=== PATIENT | male | born 1955 ===

== ENCOUNTER 2021-04-24 16:17 | Outpatient (REF) | payer BC, SELFPAY ==
[2021-04-24 16:50] LABS: Mean Corpuscular Hemoglobin 29.6 pg (27.0-33.0); Mean Platelet Volume 11.6 fL (9.4-12.4); PLT CLUMP 1; Red Cell Distribution Width 14.1 % (11.0-16.0); SCAN SMEAR FLAG 1
[2021-04-24 16:51] LABS: Basophils Percent Auto 0.5 % (0-2); Eosinophils Absolute Auto 0.1 X10*3/uL (0.0-0.4); Eosinophils Percent Auto 1.6 % (0-4); Hematocrit 45.6 % (42-52); Hemoglobin 15.1 g/dl (14.0-18.0); Imm Gran Abs Auto 0.01 X10*3/uL (0.00-0.03); Imm Gran Pct Auto 0.2 % (0.0-0.4); Lymphocytes Percent Auto 31.7 % (20-40); Mean Corpuscular HGB Conc 33.1 g/dl (31.0-36.0); Mean Corpuscular Volume 89.4 fL (80-98); Monocytes Absolute Auto 0.8 X10*3/uL (0.1-1.2); Monocytes Percent Auto 13.4 % (2-11); Neutrophils Absolute Auto 3.3 X10*3/uL (2.0-8.3); Neutrophils Percent Auto 52.6 % (45-73); Platelet Count 135 X10*3/uL (160-400); White Blood Count 6.3 X10*3/uL (4.8-10.8)
[2021-04-24 16:53] LABS: MANUAL DIFF FLAG NO
[2021-04-24 17:10] LABS: Alanine Aminotransferase 28 U/L (0-40); Albumin Level 4.4 g/dL (3.5-5.0); Alkaline Phosphatase 73 U/L (39-117); Anion Gap 11 (12-20); Aspartate Amino Transferase 29 U/L (5-37); Bilirubin Total 0.5 mg/dL (0.0-1.0); Blood Urea Nitrogen 32 mg/dL (9-16); Calcium 9.6 mg/dL (8.4-10.2); Carbon Dioxide 28 mmol/L (22-29); Chloride 106 mmol/L (96-108); Cholesterol 189 mg/dL; Estimated Glomerular Filt Rate > 60; Glucose Random 99 mg/dL (60-115); HDL Cholesterol 69 mg/dL; LDL Cholesterol Calculated 103 mg/dl; Potassium 4.4 mmol/L (3.3-5.1); Sodium 141 mmol/L (135-145); Total Protein 6.8 g/dL (6.5-8.0); Triglycerides 88 mg/dL
[2021-04-24 17:33] LABS: Free T4 (Free Thyroxine) 0.84 ng/dL (0.71-1.85); Prostate Specific Antigen Scr 2.73 ng/mL (<0.05-4.0); Thyroid Stimulating Hormone 2.02 uIU/mL (0.32-4.0)
[2021-04-24 17:42] LABS: Folate 10.1 ng/mL (> or = 4.0); Vitamin B12 393 pg/mL (200-900)
== END 2021-04-24 16:18 | disposition home or self-care (01) ==
LOC: HO.LAB 16:17
PROVIDERS: PCP Internal Medicine; Visit Provider Internal Medicine
DX: F32.9 Major depressive disorder, single episode, unspecified (principal); F41.9 Anxiety disorder, unspecified; E78.00 Pure hypercholesterolemia, unspecified
CPT/HCPCS: 36415; 80053; 80061; 82607; 82746; 84153; 84439; 84443; 85025

== ENCOUNTER → 2021-06-04 08:11 | Outpatient (REF) | payer BC, SELFPAY ==
--- NOTE | 2021-06-04 09:06 | ECG_ITS ---
Test Reason : FATIGUE Blood Pressure : / mmHG Vent. Rate : 059 BPM Atrial Rate : 059 BPM P-R Int : 176 ms QRS Dur : 112 ms QT Int : 438 ms P-R-T Axes : 058 025 052 degrees QTc Int : 433 ms Sinus bradycardia Otherwise normal ECG No previous ECGs available Referred By: Joe Osborn Electronically Signed By:RYAN BEAR MD
== END ==
LOC: HO.CARD 08:11
PROVIDERS: Absent Provider Internal Medicine; PCP Internal Medicine; Referring Provider Internal Medicine; Visit Provider Nurse Practitioner Family
DX: Z01.818 Encounter for other preprocedural examination (principal); R53.83 Other fatigue
CPT/HCPCS: 93005

== ENCOUNTER 2021-09-05 07:40 | Day surgery (SDC) | payer BC, SELFPAY ==
[2021-08-29 11:00] VITALS: BMI 29.4
--- NOTE | 2021-09-04 10:10 | P.CONAN_ITS ---
Documented by User: Olga Celis NP 09/04/21 10:15 HPI - Anesthesia Eval Consult details Narrative: 66yo M for Colonoscopy PMFSH Active Problems Active Problems: All Active Problems (Updated 08/29/21 @ 10:59 by Gracy Burton RN) Annual physical exam (Acute) Colon cancer screening (Acute) Tiredness (Acute) ADHD (Acute) Anxiety and depression (Acute) Hypercholesterolemia (Acute) Past Medical History Medical History ADHD Anxiety and depression COVID-19 vaccine series completed Erectile dysfunction Esophageal erosions Hypercholesterolemia Thrombocytopenia Family History Family History Mother Renal cancer Brother Substance abuse Surgical History Surgical History (Updated 08/29/21 @ 10:59 by Gracy Burton RN) H/O arthroscopy of right knee H/O colonoscopy History of esophagogastroduodenoscopy (EGD) History of shoulder surgery Hx of tonsillectomy Social History Social History Housing: House Alcohol intake: never Patient Tobacco Use Status: Former Tobacco user Tobacco use type: Cigarette e-Cigarette/Vaping Use: Never Used Second Hand Smoke Exposure: No Advance Directives Information Provided: Yes (informational brochure mailed) Advance Directives on File: No service: No Current occupational status: employed Current occupational exposures/hazards: No Meds Allergies Allergy/AdvReac Type Severity Reaction Status Date / Time ketoprofen [Ketoprofen] Allergy Mild RASH Verified 06/04/21 08:16 Home Medications Medication Instructions Recorded Confirmed Last Taken Type bupropion HCl 300 mg 24 hr tablet, 300 mg PO BEDTIME 04/09/21 08/29/21 Unknown History extended release dextroamphetamine-amphetamine ER 1 cap PO QAM 04/09/21 08/29/21 Unknown History 25 mg 24hr capsule,extend release escitalopram oxalate 10 mg tablet 10 mg PO DAILY 04/09/21 08/29/21 Unknown History Exam Exam Date and Time: September 04, 2021 1010 Height,Weight and Vital Signs: Height 6 ft 1 in Weight 101.151 kg Pertinent Lab Results Pertinent Lab Results: Laboratory Tests 04/24/21 04/24/21 16:30 16:30 WBC 6.3 Hgb 15.1 Hct 45.6 Plt Count 135 L Sodium 141 Potassium 4.4 Chloride 106 Carbon Dioxide 28 BUN 32 H Creatinine 1.01 Narrative Narrative: EKG 05/2021 Vent. Rate : 059 BPM ? ? Atrial Rate : 059 BPM ?? P-R Int : 176 ms? QRS Dur : 112 ms ? ? QT Int : 438 ms ? ? ? P-R-T Axes : 058 025 052 degrees ?? QTc Int : 433 ms ? Sinus bradycardia Otherwise normal ECG No previous ECGs available Assessment and Plan Assessment Anesthesia Assessment: Chart Reviewed Documented by User: Carito Johnson MD 09/05/21 08:22 [facility] Past Medical History Medical History ADHD Anxiety and depression COVID-19 vaccine series completed Erectile dysfunction Esophageal erosions Hypercholesterolemia Thrombocytopenia Functional capacity: independent ambulation Family History Family History Mother Renal cancer Brother Substance abuse Family history of problems with anesthesia: No Surgical History Surgical History (Updated 08/29/21 @ 10:59 by Gracy Burton RN) H/O arthroscopy of right knee H/O colonoscopy History of esophagogastroduodenoscopy (EGD) History of shoulder surgery Hx of tonsillectomy History of Problems with Anesthesia: No Social History Social History Housing: House Alcohol intake: never Patient Tobacco Use Status: Former Tobacco user Tobacco use type: Cigarette e-Cigarette/Vaping Use: Never Used Second Hand Smoke Exposure: No Advance Directives Information Provided: Yes (informational brochure mailed) Advance Directives on File: No service: No Current occupational status: employed Current occupational exposures/hazards: No Meds Allergies Allergy/AdvReac Type Severity Reaction Status Date / Time ketoprofen [Ketoprofen] Allergy Mild RASH Verified 06/04/21 08:16 Home Medications Medication Instructions Recorded Confirmed Last Taken Type bupropion HCl 300 mg 24 hr tablet, 300 mg PO BEDTIME 04/09/21 08/29/21 Unknown History extended release dextroamphetamine-amphetamine ER 1 cap PO QAM 04/09/21 08/29/21 Unknown History 25 mg 24hr capsule,extend release escitalopram oxalate 10 mg tablet 10 mg PO DAILY 04/09/21 08/29/21 Unknown History Exam Airway Mallampati Class: II TM Dist: >3cm Neck ROM: Full Heart: RRR Lungs: CTA Assessment and Plan Final Anesthetic Review Family History of Problems with Anesthesia: No History of Problems with Anesthesia: No Final Preanesthetic Review: No Changes in Pt Med Stat Patient Risk: Low Procedure Risk: Low Anesthetic Plan Anesthetic Plan: MAC: Disposition: Standard PACU
[2021-09-05 07:48] VITALS: BP 121/80; PULSE 56; RESP 16; TEMP 36.8; O2SAT 96
[2021-09-05] MEDS: Lactated Ringers 1,000 ML 100 ML IVCONT (08:03)
--- NOTE | 2021-09-05 08:30 | MHC.SHP ---
Pre-Procedural Eval Section A Date of Service: 09/05/21 Section B Chief Complaint: Screening Relevant Family History (Specify if Yes): No Relevant Social History: None Present Medications: see Short Stay Collaborative assessment Medical History: Significant History (adhd, depression, high chol) History of Previous Operations: Relevant previous surgery/procedure and date(s) (H/O arthroscopy of right knee H/O colonoscopy History of esophagogastroduodenoscopy (EGD) History of shoulder surgery Hx of tonsillectomy) Allergies: Allergies Allergy/AdvReac Type Severity Reaction Status Date / Time ketoprofen [Ketoprofen] Allergy Mild RASH Verified 06/04/21 08:16 Review of Systems Sugical H&P ROS: Negative: Constitution, Cardiovascular, Respiratory, Neurological, Psychiatric, Hem-Onc, Allergic/Immunologic, Gastrointestinal, Genitourinary, Musculoskeletal, Integumentary, Endocrine and Eyes/Ears/Nose/Throat Exam Surgical H&P Exam: Normal: HEENT, Normal: Heart, Normal: Lungs, Normal: Extremities, Normal: Abdomen, Normal: Skin and Normal: Neurological Plan Diagnosis/Plan: Unchanged I have reviewed the history and physical and performed a pertinent physical examination on my patient. No changes have occurred unless specified.
--- NOTE | 2021-09-05 09:03 | PM.OP ---
Brief Operative Note Date of Service: 09/05/21 Pre-op diagnosis: screening Post-op diagnosis: same Procedure: see op note Surgeon: Oscar Espinoza MD Anesthesia: MAC Was an Respiratory Therapy Aide used for this Procedure?: No Estimated blood loss (mL): 5 Condition: stable Disposition: PACU
--- NOTE | 2021-09-05 09:04 | P.OP_ITS ---
Operative Note Operative Note Date of Service: 09/05/21 Narrative: Operative Information Procedure Description: Colonoscopy COLONOSCOPY Instrument: Olympus variable stiffness pediatric scope 190L Colonoscopy Monitoring: Vital signs and clinical assessment, continuous EKG monitoring, Pulse oximetry, Carbon Dioxide monitoring and blood pressure monitoring were done throughout the procedure. Colon withdrawal time was 17 minutes. Procedure: The patient was placed in the left lateral decubitis position and pre-procedure medications were administered. After a digital rectal examination of the ano-rectum, the video colonoscope was inserted into the rectum and advanced through the colon to the cecum/TI. The colonoscope was slowly withdrawn in a retrograde panoramic fashion and the colon mucosa was carefully examined including a retroflexed view of the rectum. Findings and interventions are described below. Procedure Difficulty: easy Findings: Terminal Ileum-normal Cecum: 10 mm sessile polyp removed with cold snare Ascending Colon: normal Transverse Colon -normal Descending Colon:normal Sigmoid Colon: scattered medium sized diverticula Rectum: Retroflexion with medium sized internal hemorrhoids, grade I, In proximal rectum there was a 10-12 mm sessile polyp with surrounding edema, inflammed surface, removed with codl snare and then 2 clips applied for hemostasis. Anorectum - normal Colon preparation: [place] Bowel Preparation Scale Right colon; 2 Transverse colon: 2 Left colon; 2 (0 = Unprepared colon segment with mucosa not seen due to solid stool that cannot be cleared. 1 = Portion of mucosa of the colon segment seen, but other areas of the colon segment not well seen due to staining, residual stool and/or opaque liquid. 2 = Minor amount of residual staining, small fragments of stool and/or opaque liquid, but mucosa of colon segment seen well. 3 = Entire mucosa of colon segment seen well with no residual staining, small fragments of stool or opaque liquid) Impression and Post Procedure Diagnosis: polyps internal hemorrhoids diverticular disease Plan: High fiber diet leaflet Avoid straining at stool, epsom salts and sitz bath, anusol supps or cream Repeat Colonoscopy in 5 years due to polyps or earlier if clinically indicated Above findings were reviewed with the patient and relevant handouts were provided if indicated.
[2021-09-05 09:10] VITALS: BP 86/47; PULSE 48; RESP 16; TEMP 36.4; O2SAT 96
[2021-09-05 09:15] VITALS: BP 103/60; PULSE 47; RESP 16; O2SAT 94
[2021-09-05 09:20] VITALS: BP 108/63; PULSE 48; RESP 16; O2SAT 98
[2021-09-05 09:25] VITALS: BP 100/56; PULSE 52; RESP 16; TEMP 36.2; O2SAT 95
--- NOTE | 2021-09-05 11:16 | HO.POSTANES ---
Post Anesthesia Evaluation Post Anesthesia Evaluation Vital Signs: Vital Signs Temp Pulse Resp BP Pulse Ox 09/05/21 09:25 97.1 F 52 16 100/56 L 95 09/05/21 09:20 48 L 16 108/63 98 09/05/21 09:15 47 L 16 103/60 94 09/05/21 09:10 97.5 F 48 L 16 86/47 L 96 09/05/21 07:48 98.2 F 56 16 121/80 96 Anesthesia: Monitored Mental Status: Awake Pain Control: Satisfactory Nausea/Vomiting: None Hydration: Adequate Anesthesia-Related Issues: No Anes. Related Issues
== END 2021-09-05 10:11 | disposition home or self-care (01) ==
PROVIDERS: PCP Internal Medicine; Visit Provider Internal Medicine Gastroenterology
PROC: 0DJD8ZZ Inspection of Lower Intestinal Tract, Via Natural or Artificial Opening Endoscopic (ICD-10-PCS; CPT 45378; principal; 2021-09-05 08:30)
DX: Z12.11 Encounter for screening for malignant neoplasm of colon (principal); D12.0 Benign neoplasm of cecum; D12.8 Benign neoplasm of rectum; K57.30 Diverticulosis of large intestine without perforation or abscess without bleeding; K64.0 First degree hemorrhoids; K22.10 Ulcer of esophagus without bleeding; F32.9 Major depressive disorder, single episode, unspecified; D69.6 Thrombocytopenia, unspecified; N52.9 Male erectile dysfunction, unspecified; F90.9 Attention-deficit hyperactivity disorder, unspecified type; E78.00 Pure hypercholesterolemia, unspecified; Z88.8 Allergy status to other drugs, medicaments and biological substances
CPT/HCPCS: 45385; 88305

== ENCOUNTER → 2021-09-24 10:34 | Outpatient (BNVA) | payer BC, SELFPAY | PROVIDERS: PCP Internal Medicine; Referring Provider Internal Medicine; Visit Provider Nurse Practitioner Family ==

== ENCOUNTER 2023-03-26 08:19 | Outpatient (REF) | payer OTHER, SELFPAY ==
[2023-03-26 08:39] LABS: MANUAL DIFF FLAG NO
[2023-03-26 09:35] LABS: Basophils Percent Auto 0.7 % (0-2); Eosinophils Absolute Auto 0.1 X10*3/uL (0.0-0.4); Eosinophils Percent Auto 1.7 % (0-4); Hematocrit 46.3 % (42.0-52.0); Hemoglobin 15.3 g/dl (14.0-18.0); Imm Gran Abs Auto 0.01 X10*3/uL (0.00-0.03); Imm Gran Pct Auto 0.2 % (0.0-0.4); Lymphocytes Absolute Auto 1.7 X10*3/uL (1.2-4.9); Lymphocytes Percent Auto 30.8 % (20-40); Mean Corpuscular Volume 87.7 fL (80.0-98.0); Mean Platelet Volume 11.5 fL (9.4-12.4); Monocytes Absolute Auto 0.5 X10*3/uL (0.1-1.2); Monocytes Percent Auto 9.8 % (2-11); Neutrophils Absolute Auto 3.1 x10*3/uL (2.0-8.3); Neutrophils Percent Auto 56.8 % (45-73); Platelet Count 132 X10*3/uL (160-400); Red Blood Count 5.28 X10*6/uL (4.60-5.80); Red Cell Distribution Width 13.7 % (11.0-16.0); White Blood Count 5.4 X10*3/uL (4.8-10.8)
[2023-03-26 10:38] LABS: Alanine Aminotransferase 31 U/L (0-40); Albumin Level 4.3 g/dL (3.5-5.0); Alkaline Phosphatase 80 U/L (39-117); Anion Gap 12 (12-20); Aspartate Amino Transferase 29 U/L (5-37); Bilirubin Total 0.7 mg/dL (0.0-1.0); Blood Urea Nitrogen 16 mg/dL (9-16); Calcium 9.7 mg/dL (8.4-10.2); Carbon Dioxide 29 mmol/L (22-29); Chloride 105 mmol/L (96-108); Cholesterol 192 mg/dL; Estimated Glomerular Filt Rate > 60; Glucose Fasting 93 mg/dL (60-99); HDL Cholesterol 67 mg/dL; LDL Cholesterol Calculated 108 mg/dl; Potassium 4.6 mmol/L (3.3-5.1); Sodium 141 mmol/L (135-145); Total Protein 6.8 g/dL (6.5-8.0); Triglycerides 86 mg/dL
[2023-03-26 10:59] LABS: Prostate Specific Antigen 3.76 ng/mL (<0.05-4.0); Vitamin D 25-OH Total 19.4 ng/mL (>30)
== END 2023-03-26 08:20 | disposition home or self-care (01) ==
LOC: HO.LAB 08:19
PROVIDERS: PCP Internal Medicine; Visit Provider Internal Medicine
DX: Z00.00 Encounter for general adult medical examination without abnormal findings (principal); Z12.5 Encounter for screening for malignant neoplasm of prostate; E55.9 Vitamin D deficiency, unspecified; N40.0 Benign prostatic hyperplasia without lower urinary tract symptoms; E78.5 Hyperlipidemia, unspecified; R94.6 Abnormal results of thyroid function studies
CPT/HCPCS: 36415; 80053; 80061; 82306; 84153; 84439; 84443; 85025

== ENCOUNTER 2023-07-23 13:21 | Outpatient (REF) | payer OTHER, SELFPAY ==
[2023-07-23 15:45] LABS: Free T4 (Free Thyroxine) 0.81 ng/dL (0.71-1.85); Prostate Specific Antigen Scr 3.68 ng/mL (<0.05-4.0); Thyroid Stimulating Hormone 6.22 uIU/mL (0.32-4.0)
== END 2023-07-23 13:22 | disposition home or self-care (01) ==
LOC: HO.LAB 13:21
PROVIDERS: PCP Internal Medicine; Visit Provider Internal Medicine
DX: Z12.5 Encounter for screening for malignant neoplasm of prostate (principal); R79.89 Other specified abnormal findings of blood chemistry; E78.00 Pure hypercholesterolemia, unspecified
CPT/HCPCS: 36415; 84153; 84439; 84443

== ENCOUNTER 2024-02-09 14:06 | Outpatient (REF) | payer OTHER, SELFPAY ==
[2024-02-09 15:52] LABS: Free T4 (Free Thyroxine) 0.89 ng/dL (0.71-1.85); Thyroid Stimulating Hormone 6.47 uIU/mL (0.32-4.0)
== END 2024-02-09 14:07 | disposition home or self-care (01) ==
LOC: HO.LAB 14:06
PROVIDERS: PCP Internal Medicine; Visit Provider Internal Medicine
DX: R94.6 Abnormal results of thyroid function studies (principal)
CPT/HCPCS: 36415; 84439; 84443

== ENCOUNTER 2024-04-26 12:19 | Outpatient (AMB) | payer OTHER, SELFPAY ==
[2024-04-26 12:24] VITALS: BP 104/62; PULSE 49; O2SAT 95; BMI 29.0
--- NOTE | 2024-04-26 12:24 | A.OFFPC_ITS ---
Vital Signs 04/26/24 12:24 Height 6 ft 1 in Weight 220 lb BMI 29.0 BP 104/62 Blood Pressure Location Lt brachial Position Sitting Pulse 49 L Pulse Source Pulse Oximeter Pulse Oximetry (%) 95 Oxygen Delivery Method Room Air Intake Visit Reasons: Annual Exam Allergies ketoprofen [Ketoprofen] Allergy (Mild, Verified 04/26/24 12:25) RASH Medication List - Last Reconciled 04/26/24 by Joe Osborn MD bupropion HCl XL 300 mg PO BEDTIME dextroamphetamine-amphetamine 25 mg ER 1 cap PO QAM escitalopram oxalate 10 mg PO DAILY Tobacco use date assessed: 04/26/24 Fall risk assessment: No Falls in past year Last assessed Fall Risk: 04/26/24 Dental Screening Dental Screen Date: 04/26/24 Did you have a dental visit in the last 12 months?: Yes Did you have a dental problem in the last 6 months where you did not have access to dental care?: No Was dental information given to patient?: Patient has dentist HPI Annual Exam HPI Details 68-year-old overweight male with anxiety and depression ADHD coming in for physical exam last seen in 04/15/2023 patient's colonoscopy is up-to-date 09/15/2021 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 complains of having RUQ pain and intermittently PFSH Medical History (Updated 04/26/24 @ 13:23 by Joe Osborn MD) Diverticulosis Tubular adenoma COVID-19 vaccine series completed Colon cancer screening Esophageal erosions Erectile dysfunction ADHD Anxiety and depression Hypercholesterolemia Thrombocytopenia Surgical History History of esophagogastroduodenoscopy (EGD) H/O colonoscopy Hx of tonsillectomy H/O arthroscopy of right knee History of shoulder surgery Family History (Updated 04/21/23 @ 12:32 by Caitlin Moore CMA) Mother Renal cancer Brother Substance abuse Social History Housing: House Alcohol intake: never Patient Tobacco Use Status: Former Tobacco user Tobacco use type: Cigarette e-Cigarette/Vaping Use: Never Used Second Hand Smoke Exposure: No service: No Current occupational status: employed Current occupational exposures/hazards: No Cognitive needs: No Hearing needs: No Vision needs: Yes (wears glasses) Questionnaire PHQ-9 Over the last 2 weeks, how often have you been bothered by any of the following problems? 1. Little interest or pleasure in doing things: not at all 2. Feeling down, depressed, or hopeless: not at all 3. Trouble falling or staying asleep, or sleeping too much: not at all 4. Feeling tired or having little energy: not at all 5. Poor appetite or overeating: not at all 6. Feeling bad about yourself - or that you are a failure or have let yourself or your family down: not at all 7. Trouble concentrating on things, such as reading the newspaper or watching television: not at all 8. Moving or speaking so slowly that other people could have noticed. Or the opposite - being so fidgety or restless that you have been moving around a lot more than usual: not at all 9. Thoughts that you would be better off or of hurting yourself in some way: not at all Total score: 0 Depression Screening Interpretation: Negative (on Rx) Depression Screening Done: Yes Source: Developed by Drs. Faisal Gonzalez, Leann Erickson, Js Garcia and colleagues, with an educational brooklynn from [employer]. Thrive Questionnaire Date Thrive assessed: 04/26/24 I am a: Patient What is your living situation today?: I have a steady place to live Within the past 12 months, did the food you bought not last and you didn't have the money to get more?: Never true Within the past 12 months, did you worry whether your food would run out before you got money to buy more?: Never true Do you have trouble paying for medicines?: No Do you have trouble getting transportation to medical appointments?: No Do you have trouble paying your heating and electricity bill?: No Do you have trouble taking care of your child, family member or friend?: No Do you have trouble with day-to-day activities such as bathing, preparing meals, shopping, managing finances, etc.?: No Are you currently unemployed and looking for a job?: No Are you interested in more education?: No Currently or been in a relationship where the following occur: No concerns reported THRIVE Score: 0 AUDIT C Alcohol Use Questionnaire (AUDIT-C) 1. How often do you have a drink containing alcohol?: Never 3. How often do you have six or more drinks on one occasion?: Never Total Score: 0 Score Reviewed/Action Taken: Yes THANIA-7 AMB Questionnaire THANIA-7 Date THANIA - 7 assessed: 04/26/24 Feeling nervous, anxious, or on edge: 0 = Not at all Not being able to stop or control worryin = Not at all Worrying too much about different things: 0 = Not at all Trouble relaxin = Not at all Being so restless that it is hard to sit still: 0 = Not at all Becoming easily annoyed or irritable: 0 = Not at all Feeling afraid as if something awful might happen: 0 = Not at all Total THANIA-7 score (0-4 normal; 5-9 mild; 10-14 moderate; 15-21 severe): 0 Source: Developed by Drs. Faisal Gonzalez, Leann Erickson, Js Garcia and colleagues, with an educational brooklynn from [employer]. Review of Systems Const Denies poor appetite and Denies weakness Eyes Denies no additional complaints ENT Reports Normal hearing present, Denies dizziness, Denies nasal congestion, Denies tinnitus and Denies sore throat Card Denies chest pain, Denies syncope, Denies rapid heart rate and Denies dyspnea Resp Denies cough and Denies dyspnea GI Denies change in stool character, Reports constipation, Denies diarrhea, Denies nausea and Denies vomiting Denies dysuria and Denies urinary frequency Neuro Reports Normal hearing present, Denies confusion, Denies dizziness, Denies syncope and Denies weakness Psych Denies confusion Physical exam (Primary Care) Vital Signs: Last Vital Signs Pulse 49 L 04/26/24 12:24 BP 104/62 04/26/24 12:24 Pulse Ox 95 04/26/24 12:24 Oxygen Delivery Method Room Air 04/26/24 12:24 BMI result Body Mass Index 29.0 Tobacco/Smoking Status: Tobacco use Status Tobacco use date assessed 04/26/24 04/26/24 12:26 Patient Tobacco Use Status Former Tobacco user 04/26/24 12:26 Tobacco use type Cigarette 04/26/24 12:26 e-Cigarette/Vaping Use Never Used 04/26/24 12:26 PHQ-9: PHQ-9 Score PHQ-9: Total score 0 04/26/24 12:59 Depression Screening Interpretation: Negative (on Rx) Thrive Assessment: Date of Thrive Assessment Date Thrive assessed 04/26/24 04/26/24 12:26 Currently or been in a relationship where the following occur: No concerns reported Const General: No confusion Orientation/consciousness: No confusion HENMT Head: Yes normocephalic Ears: external ears normal and TM's normal bilaterally Face and sinus: Yes normal facial exam Mouth: moist mucous membranes Throat: Yes tonsils normal Eyes Conjunctivae: conjunctivae normal Pupils: Equal, round and reactive pupils present and Pupil accommodation reflex normal Direct Ophthalmoscopy: normal light reflex Neck Neck: No lymphadenopathy Thyroid: Thyroid normal Chest Chest palpation & inspection: normal inspection of the chest Resp Effort & Inspection: normal respiratory effort and no audible wheezes Auscultation: clear to auscultation bilaterally, no crackles, no wheezes and lung sounds not diminished Cardio Rate: regular rate Rhythm: regular rhythm Peripheral pulses: radial pulses present and dorsalis pedis present GI Other: guaiac negative and prostate N Palpation (GI): no masses Auscultation: normal bowel sounds and normoactive bowel sounds Male General Exam: Yes normal external exam Skin General skin exam: no rashes or lesions noted Rashes: no rashes Neuro General: No confusion Cranial nerves: Yes Equal, round and reactive pupils present and Yes Normal hearing present Cognition (Neuro): normal cognition Gait exam (Neuro): Normal gait present Motor exam (neuro): 5/5 motor strength present throughout Deep tendon reflexes (DTR's): Right brachioradialis reflex intensity grade: 2+, Left brachioradialis reflex intensity grade: 2+, Right patellar reflex intensity grade: 2+ and Left patellar reflex intensity grade: 2+ Extrem General: No edema Assessment and Plan Assessment & Plan (1) Annual physical exam: Code(s): Z00.00 - Encounter for general adult medical examination without abnormal findings Plan: Patient is advised to eat healthy, keep well hydrated, keep active and have adequate sleep. (2) Overweight (BMI 25.0-29.9): Code(s): E66.3 - Overweight Plan: Diet and exercise (3) TSH elevation: Code(s): R79.89 - Other specified abnormal findings of blood chemistry Plan: Continue to monitor TSH (4) Anxiety and depression: Comment: Bernadtete Tapankevinyukiradha Rohit Agustin Psych March 20202020 Code(s): F41.9 - Anxiety disorder, unspecified; F32.9 - Major depressive disorder, single episode, unspecified Plan: Continue with counseling and therapy (5) ADHD: Code(s): F90.9 - Attention-deficit hyperactivity disorder, unspecified type Qualifiers: Attention deficit-hyperactivity disorder type: combined inattentive- hyperactive Qualified Code(s): F90.2 - Attention-deficit hyperactivity disorder, combined type Plan: Continue with present medication (6) RUQ abdominal pain: Code(s): R10.11 - Right upper quadrant pain Orders: Orders US abdomen complete Today R10.11 - Right upper quadrant pain, R79.89 - Other specified abnormal findings of blood chemistry Coding Level of Care Code Est Pt Prev Care >65y(62063) Diagnoses Annual physical exam Z00.00 Overweight (BMI 25.0-29.9) E66.3 TSH elevation R79.89 Anxiety and depression F41.9; F32.9 Attention deficit hyperactivity disorder (ADHD), combined type F90.2 Attention deficit-hyperactivity disorder type: combined inattentive- hyperactive RUQ abdominal pain R10.11 Additional Codes PHQ-9 - 19551 - PHQ-9 Billing: ([id number])
== END 2024-04-26 13:32 | disposition home or self-care (01) ==
PROVIDERS: PCP Internal Medicine; Visit Provider Internal Medicine
DX: Z00.00 Encounter for general adult medical examination without abnormal findings (principal); E66.3 Overweight; R79.89 Other specified abnormal findings of blood chemistry; F41.9 Anxiety disorder, unspecified; F32.9 Major depressive disorder, single episode, unspecified; F90.2 Attention-deficit hyperactivity disorder, combined type; R10.11 Right upper quadrant pain
CPT/HCPCS: 99397

== ENCOUNTER 2024-06-21 08:39 | Outpatient (REF) | payer OTHER, SELFPAY ==
--- NOTE | ~2024-06-21 | US_ITS ---
EXAMINATION: US ABDOMEN COMPLETE CLINICAL INFORMATION: Other specified abnormal findings of blood chemistry. COMPARISON: None available. TECHNIQUE: Real-time imaging of the abdominal viscera. FINDINGS: PANCREAS: Normal. ABDOMINAL AORTA: The proximal, mid, and distal segments are normal in caliber. INFERIOR VENA CAVA: Visualized portions are normal. LIVER: Normal. The liver is normal in size. The liver contour is normal. Parenchymal echogenicity is normal. No focal hepatic lesion. There is no intrahepatic biliary duct dilatation seen. GALLBLADDER: Normal. The gallbladder is physiologically distended without evidence of stones, sludge, polyps, wall thickening or pericholecystic fluid. COMMON BILE DUCT: Normal in caliber measuring 0.4 cm in diameter. RIGHT KIDNEY: Normal. No hydronephrosis. No renal calculi or focal parenchymal lesions. The kidney measures 11.6 cm in maximum dimension. LEFT KIDNEY: Normal. No hydronephrosis. No renal calculi or focal parenchymal lesions. The kidney measures 11.6 cm in maximum dimension. SPLEEN: Normal. The spleen measures 11.1 cm in maximum dimension. FREE FLUID: None. US/US abdomen complete IMPRESSION: Unremarkable abdominal ultrasound. Electronically signed by: Crow Correia MD 06/26/2024 02:38 PM EDT
== END 2024-06-21 08:40 | disposition home or self-care (01) ==
LOC: HO.US 08:39
PROVIDERS: PCP Internal Medicine; Visit Provider Internal Medicine
DX: R10.11 Right upper quadrant pain (principal); R79.89 Other specified abnormal findings of blood chemistry
CPT/HCPCS: 76700

== ENCOUNTER 2024-12-22 10:20 | Outpatient (REF) | payer MEDICARE, OTHER, SELFPAY ==
[2024-12-22 10:39] LABS: MANUAL DIFF FLAG NO
[2024-12-22 10:44] LABS: Basophils Absolute Auto 0.1 X10*3/uL (0.0-0.2); Basophils Percent Auto 0.9 % (0-2); Eosinophils Absolute Auto 0.2 X10*3/uL (0.0-0.4); Eosinophils Percent Auto 2.2 % (0-4); Hematocrit 44.9 % (42.0-52.0); Hemoglobin 15.6 g/dl (14.0-18.0); Imm Gran Abs Auto 0.01 X10*3/uL (0.00-0.03); Imm Gran Pct Auto 0.1 % (0.0-0.4); Lymphocytes Absolute Auto 1.4 X10*3/uL (1.2-4.9); Lymphocytes Percent Auto 20.4 % (20-40); Mean Corpuscular HGB Conc 34.7 g/dl (31.0-36.0); Mean Corpuscular Hemoglobin 29.8 pg (27.0-33.0); Mean Corpuscular Volume 85.7 fL (80.0-98.0); Mean Platelet Volume 10.8 fL (9.4-12.4); Monocytes Absolute Auto 0.5 X10*3/uL (0.1-1.2); Monocytes Percent Auto 7.7 % (2-11); Neutrophils Absolute Auto 4.8 x10*3/uL (2.0-8.3); Neutrophils Percent Auto 68.7 % (45-73); Platelet Count 143 X10*3/uL (160-400); Red Blood Count 5.24 X10*6/uL (4.60-5.80); Red Cell Distribution Width 13.5 % (11.0-16.0); White Blood Count 6.9 X10*3/uL (4.8-10.8)
[2024-12-22 11:19] LABS: Alanine Aminotransferase 29 U/L (0-40); Albumin Level 4.1 g/dL (3.5-5.0); Alkaline Phosphatase 103 U/L (39-117); Anion Gap 12 (12-20); Aspartate Amino Transferase 28 U/L (5-37); Bilirubin Total 0.5 mg/dL (0.0-1.0); Blood Urea Nitrogen 20 mg/dL (9-16); Calcium 9.6 mg/dL (8.4-10.2); Carbon Dioxide 28 mmol/L (22-29); Chloride 106 mmol/L (96-108); Cholesterol 180 mg/dL (<200); Estimated Glomerular Filt Rate > 60; Glucose Random 100 mg/dL (60-115); HDL Cholesterol 60 mg/dL (>40); LDL Cholesterol Calculated 88 mg/dL (<100); Potassium 3.9 mmol/L (3.3-5.1); Sodium 142 mmol/L (135-145); Total Protein 7.3 g/dL (6.5-8.0); Triglycerides 164 mg/dL (<150)
[2024-12-22 11:40] LABS: Free T4 (Free Thyroxine) 0.88 ng/dL (0.71-1.85); Thyroid Stimulating Hormone 3.38 uIU/mL (0.32-4.0)
[2024-12-22 11:50] LABS: Folate 8.7 ng/mL (> or = 4.0); Prostate Specific Antigen Scr 3.77 ng/mL (<0.05-4.0); Vitamin B12 611 pg/mL (200-900)
--- OUTSIDE RECORDS SUMMARY | 2024-12-22 12:40 | XMS_ITS | Clinical Summary ---
Author Organization [facility] Address [address] [place] [address] Care Team Providers Care Administrative Support Assoc Name Role Phone Unavailable Primary Care Provider Unavailabl e Immunizations Name Administration Dates Next Due Covid-19 (Pfizer) Dilution Required 11/10/2020,1 12/13/2019 Social History Tobacco Use Types Packs/Day Years Used Date Smoking Tobacco: Never Assessed Sex and Gender Information Value Date Recorded Sex Assigned at Male 10/12/2020 1:51 PM EST Gender Identity Not on file Sexual Orientation Not on file Plan of Treatment Health Maintenance Due Date Last Done Comments Hepatitis C Screening 1957 Depression Screening 1969 Preventative Health Evaluation 1975 DTap / Tdap / Td (1 - Tdap) 1976 Colon Cancer Screening (Colonoscopy) 2002 Shingrix-Zoster Vaccine (1 o f 2) 2007 Fall Risk Assessment 2022 Pneumococcal Vaccine (1 of 1 - PCV) 2022 COVID-19 Vaccine (3 - 2023-2 5 season) 2024 11/10/2020, 10/12/2020 Influenza Vaccine (#1) 2024 RSV Adult > 60+ Yrs or (1 - 1-dose 75+ series) 2032 Hepatitis B Vaccines Aged Out No long er eligible based on patient's age to complete this topic RSV Ped < 20 months Aged Out No longe r eligible based on patient's age to complete this topic
== END 2024-12-22 10:21 | disposition home or self-care (01) ==
LOC: HO.LAB 10:20
PROVIDERS: PCP Internal Medicine; Visit Provider Internal Medicine
DX: E78.00 Pure hypercholesterolemia, unspecified (principal); Z12.5 Encounter for screening for malignant neoplasm of prostate
CPT/HCPCS: 36415; 80053; 80061; 82607; 82746; 84153; 84439; 84443; 85025

== ENCOUNTER 2025-09-13 16:54 | Outpatient (AMB) | payer MEDICARE, OTHER, SELFPAY ==
[2025-09-13 17:04] VITALS: BP 112/80; PULSE 52; O2SAT 98; BMI 28.2
--- NOTE | 2025-09-13 17:04 | A.OFFPC_ITS ---
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 Accompanied by: Self / Same As Patient Allergies ketoprofen (Ketoprofen) Allergy (Mild, Verified 09/13/25 17:04) RASH Medication List - Last Reconciled 09/13/25 by Joe Osborn MD bupropion HCl XL 300 mg PO BEDTIME dextroamphetamine-amphetamine 25 mg ER 1 cap PO QAM escitalopram oxalate 10 mg PO DAILY Tobacco use date assessed: 09/13/25 Fall risk assessment: No Falls in past year Last assessed Fall Risk: 09/13/25 Dental Screening Dental Screen Date: 09/13/25 Did you have a dental visit in the last 12 months?: Yes Did you have a dental problem in the last 6 months where you did not have access to dental care?: No Was dental information given to patient?: Patient has dentist HPI Med follow up HPI Details History of Present Illness The patient is a 70-year-old overweight male presenting for a follow-up visit. He has a history of ADHD, generalized anxiety disorder, and hypercholesterolemia. He was last seen in April 2024. Last blood work from November 2024 revealed mild thrombocytopenia and an e levated blood sugar of 100. His results showed normal electrolytes, good renal and liver function, and triglycerides of 164, while PSA, B12, folic acid, and thyroid levels were all within normal limits. The patient's last colonoscopy was performed in August 2021, and he is due for a repeat screening next year. An ultrasound performed in 2023 was negative. Health Maintenance - The patient's last colonoscopy was in August 2021, with a repeat scheduled for next year. - Diet and exercise were discussed. Social History - Exercise: Discussed. - Diet: Discussed. Review of Systems Physical Exam - Vital Signs: Blood pressure is good. Results - Labs (November 2024): - Mild thrombocytopenia - Normal electrolytes - Good renal function - Blood sugar: 100 - Normal liver function - Triglycerides: 164 - PSA, B12, folic acid, and thyroid func tion tests within normal limits - Imaging: - Ultrasound (2023): Negative Plan Patient was informed and verbally consented to the use of an ambient scribe for clinic note documentation during this visit. Discussion Notes Patient Instructions - Continue to focus on diet and exercise . [facility] Medical History (Updated 04/26/24 @ 13:23 by Joe Osborn MD) Diverticulosis Tubular adenoma COVID-19 vaccine series completed Colon cancer screening Esophageal erosions Erectile dysfunction ADHD Anxiety and depression Hypercholesterolemia Thrombocytopenia Surgical History History of esophagogastroduodenoscopy (EGD) H/O colonoscopy Hx of tonsillectomy H/O arthroscopy of right knee History of shoulder surgery Family History Mother Renal cancer Brother Substance abuse Social History Housing: House Alcohol intake: never Patient Tobacco Use Status: Former Tobacco user Tobacco use type: Cigarette e-Cigarette/Vaping Use: Never Used Second Hand Smoke Exposure: No service: No Current occupational status: employed Current occupational exposures/hazards: No Cognitive needs: No Hearing needs: No Vision needs: Yes (wears glasses) Questionnaire PHQ-9 Over the last 2 weeks, how often have you been bothered by any of the following problems? 1. Little interest or pleasure in doing things: not at all 2. Feeling down, depressed, or hopeless: not at all 3. Trouble falling or staying asleep, or sleeping too much: not at all 4. Feeling tired or having little energy: not at all 5. Poor appetite or overeating: not at all 6. Feeling bad about yourself - or that you are a failure or have let yourself or your family down: not at all 7. Trouble concentrating on things, such as reading the newspaper or watching television: not at all 8. Moving or speaking so slowly that other people could have noticed. Or the opposite - being so fidgety or restless that you have been moving around a lot more than usual: not at all 9. Thoughts that you would be better off or of hurting yourself in some way: not at all Total score: 0 Source: Developed by Drs. Faisal Gonzalez, Leann Erickson, Js Garcia and colleagues, with an educational brooklynn from [employer]. Thrive Questionnaire Date Thrive assessed: 09/13/25 I am a: Patient What is your living situation today?: I have a steady place to live Within the past 12 months, did the food you bought not last and you didn't have the money to get more?: Never true Within the past 12 months, did you worry whether your food would run out before you got money to buy more?: Never true Do you have trouble paying for medicines?: No Do you have trouble getting transportation to medical appointments?: No Do you have trouble paying your heating and electricity bill?: No Do you have trouble taking care of your child, family member or friend?: No Do you have trouble with day-to-day activities such as bathing, preparing meals, shopping, managing finances, etc.?: No Are you currently unemployed and looking for a job?: No Are you interested in more education?: No Please select the resources that you would like help with: None Currently or been in a relationship where the following occur: No concerns reported THRIVE Score: 0 AUDIT C Alcohol Use Questionnaire (AUDIT-C) 1. How often do you have a drink containing alcohol?: Never 3. How often do you have six or more drinks on one occasion?: Never Total Score: 0 Score Reviewed/Action Taken: Yes THANIA-7 AMB Questionnaire THANIA-7 Date THANIA - 7 assessed: 09/13/25 Feeling nervous, anxious, or on edge: 0 = Not at all Not being able to stop or control worryin = Not at all Worrying too much about different things: 0 = Not at all Trouble relaxin = Not at all Being so restless that it is hard to sit still: 0 = Not at all Becoming easily annoyed or irritable: 0 = Not at all Feeling afraid as if something awful might happen: 0 = Not at all Total THANIA-7 score (0-4 normal; 5-9 mild; 10-14 moderate; 15-21 severe): 0 Source: Developed by Drs. Faisal Gonzalez, Leann Erickson, Js Garcia and colleagues, with an educational brooklynn from [employer]. Physical exam (Primary Care) Vital Signs: Last Vital Signs Pulse 52 09/13/25 17:04 BP 112/80 09/13/25 17:04 Pulse Ox 98 09/13/25 17:04 Oxygen Delivery Method Room Air 09/13/25 17:04 BMI result Body Mass Index 28.2 Tobacco/Smoking Status: Tobacco use Status Tobacco use date assessed 09/13/25 09/13/25 17:05 Patient Tobacco Use Status Former Tobacco user 09/13/25 17:05 Tobacco use type Cigarette 09/13/25 17:05 e-Cigarette/Vaping Use Never Used 09/13/25 17:05 PHQ-9: PHQ-9 Score PHQ-9: Total score 0 09/13/25 17:06 Thrive Assessment: Date of Thrive Assessment Date Thrive assessed 09/13/25 09/13/25 17:12 Currently or been in a relationship where the following occur: No concerns reported Const General: alert; No acute distress Eyes Conjunctivae: conjunctivae normal Resp Auscultation: clear to auscultation bilaterally Cardio Rate: regular rate Rhythm: regular rhythm GI Inspection: Yes normal to inspection Extrem General: Yes normal to inspection and No edema Coding Level of Care Code Est Pt Level 4 (71144) Diagnoses Attention deficit hyperactivity disorder (ADHD), combined type F90.2 Attention deficit-hyperactivity disorder type: combined inattentive- hyperactive Overweight (BMI 25.0-29.9) E66.3 Frequency of micturition R35.0 Assessment & Plan Assessment & Plan (1) ADHD: Code(s): F90.9 - Attention-deficit hyperactivity disorder, unspecified type Category: Medical Qualifiers: Attention deficit-hyperactivity disorder type: combined inattentive- hyperactive Qualified Code(s): F90.2 - Attention-deficit hyperactivity disorder, combined type Plan: Blood pressure continues to be good, patient is stable with medication (2) Overweight (BMI 25.0-29.9): Code(s): E66.3 - Overweight Category: Medical Plan: Diet and exercise (3) Frequency of micturition: Code(s): R35.0 - Frequency of micturition Category: Medical Plan: Will request for an ultrasound of the bladder and urinalysis. Pre and post void Orders: Orders US bladder Today R35.0 - Frequency of micturition Comprehensive Met. Panel 2 Months E78.00 - Pure hypercholesterolemia, unspecified Lipid Panel 2 Months E78.00 - Pure hypercholesterolemia, unspecified Prostate Specific Antigen Scr 2 Months E78.00 - Pure hypercholesterolemia, unspecified UA CC w/rflx Micro + Cult 2 Months R30.0 - Dysuria, R35.0 - Frequency of micturition Complete Blood Count Auto Diff 2 Months E78.00 - Pure hypercholesterolemia, unspecified Free T4 (Free Thyroxine) 2 Months E78.00 - Pure hypercholesterolemia, unspecified Thyroid Stimulating Hormone 2 Months E78.00 - Pure hypercholesterolemia, unspecified Vitamin B12 and Folate 2 Months E78.00 - Pure hypercholesterolemia, unspecified
== END 2025-09-13 17:30 | disposition home or self-care (01) ==
LOC: HO.HMCH 16:54
PROVIDERS: PCP Internal Medicine; Visit Provider Internal Medicine
DX: F90.2 Attention-deficit hyperactivity disorder, combined type (principal); E66.3 Overweight; R35.0 Frequency of micturition

== ENCOUNTER → 2025-09-13 16:54 | Outpatient (BNVA) | payer MEDICARE, OTHER, SELFPAY | PROVIDERS: PCP Internal Medicine; Visit Provider Internal Medicine | DX: F90.2 Attention-deficit hyperactivity disorder, combined type (principal); R35.0 Frequency of micturition; E66.3 Overweight; Z68.28 Body mass index [BMI] 28.0-28.9, adult; Z71.3 Dietary counseling and surveillance | CPT/HCPCS: 99212 ==